=== PATIENT | female | born 1990 | race Caucasian/White ===

== ENCOUNTER 2016-10-02 10:08 | Emergency (ER) | payer OTHER ==
--- NOTE | ~2016-10-02 | ER ---
PATIENT'S NAME: JULIAN MONCADA [facility] AGE: 26 Y [address] ROOM: [place] [id number] LOCATION: [facility] ADMIT DATE: 10/02/2016 ER/Outpatient Report DISCHARGE DATE: 10/02/2016 FAMILY PHYSICIAN: Joan Martinez MD ATTENDING PHYSICIAN: Trent Rico She was seen at about 1025 hours. HISTORY OF PRESENT ILLNESS: The patient is a 2, para 1. The patient is of Dr. Dietrich. She states that approximately 2 hours prior to arrival in emergency room, she had sexual intercourse with her . She then had some bright red bleeding. No cramping. She said with her previous , she had some post coital bleeding. The patient is approximately 8 to 9 weeks by her last menstrual. Her blood type is O positive. ALLERGIES: NONE. HOME MEDICATIONS: Include vitamins. MEDICAL HISTORY: No chronic diseases. SOCIAL HISTORY: Denies alcohol. She quit smoking when she found she was . REVIEW OF SYSTEMS: GENERAL: She has had some nausea with the , otherwise, no significant health problems. HEAD and EENT: Vision is corrected. RESPIRATORY: No cough or shortness of breath. CARDIOVASCULAR: She has had no chest pain. No palpitations. GASTROINTESTINAL: Denies any lower abdominal pain. GENITOURINARY: Includes vaginal bleeding following intercourse. No cramping. No dysuria. PHYSICAL EXAMINATION: VITAL SIGNS: Blood pressure 130/76, her temp is 98.5, respiratory rate 20, pulse 88, O2 sats 97%. GENERAL APPEARANCE. No obvious distress. Alert. LUNGS: Clear. HEART: Regular rhythm. ABDOMEN: Soft. No tenderness. No masses palpated. PATIENT'S NAME: JULIAN MONCADA [facility] AGE: 26 Y [address] ROOM: [place] [id number] LOCATION: [facility] ADMIT DATE: 10/02/2016 ER/Outpatient Report DISCHARGE DATE: 10/02/2016 FAMILY PHYSICIAN: Joan Martinez MD ATTENDING PHYSICIAN: Trent Rico SKIN: Warm and dry. There was no bruising or petechiae present. DIAGNOSTIC DATA: Her beta-HCG was elevated. Her pelvic ultrasound did show a viable at about 9 weeks. No other abnormalities were noted. ASSESSMENT: 1. First trimester approximately 9 weeks. 2. Has postcoital bleeding. PLAN: Recommend pelvic rest. Follow up with Dr. Dietrich in next couple days. SVETLANA VALDEZ FOR DO AMY ZHONG/snehal /[id number] d: 10/02/16 1256 t: 10/05/16 1201, OUTPATIENT REPORT
== END 2016-10-02 11:52 | disposition disaster alternative care site (69) ==
LOC: GMED 10:08
DX: O20.9 Hemorrhage in early pregnancy, unspecified (principal); Z3A.09 9 weeks gestation of pregnancy; Z87.891 Personal history of nicotine dependence

== ENCOUNTER → 2016-12-21 | Outpatient (CLI) | payer OTHER | END | disposition disaster alternative care site (69) | LOC: GRAD 13:17 | DX: Z34.82 Encounter for supervision of other normal pregnancy, second trimester (principal); Z3A.20 20 weeks gestation of pregnancy ==